=== PATIENT | female | born 1970 | race Caucasian/White ===

== ENCOUNTER 2019-11-10 05:23 | Day surgery (SDC) | payer OTHER, SELFPAY ==
--- NOTE | 2019-10-27 17:20 | PCM.HP.BLA ---
History and Physical Date of Admission: 11/10/19 HPI: The patient is a 48 year old female presenting for pre-operative visit. She is scheduled for?laparoscopic supracervical hysterectomy with in the bag uterine morcellation, and cystoscopy, for?menorrhagia and uterine fibroids on?11/10/19. ??Procedure discussed along with risks, benefits and complications. ?Other alternatives discussed for management. Consent form signed??Yes.? PAST MEDICAL HISTORY PAST MEDICAL HISTORY Diagnosis Date ? Abnormal glandular Papanicolaou smear of cervix ? ? Abn. Pap smear (cervix) ? Dysmenorrhea ? ? Excessive or frequent menstruation ? ? Heavy periods ? Fibroids ? ? Functional ovarian cysts ? ? Hypertension ? ? Migraines ? ? Thrombocytosis (HCC) ? ? Dr. Reddy ? ? PAST SURGICAL HISTORY PAST SURGICAL HISTORY Procedure Laterality Date ? COLPOSCOPY (VAGINOSCOPY) ? ? ? Colposcopy ? ? CURRENT MEDICATIONS Current Outpatient Medications Medication Sig Dispense Refill ? norethindrone (AYGESTIN) 5 mg tablet Take 1 tablet by mouth once daily. ONE PO Q 1 HR UNTIL BLEEDING SLOWS, UP TO 5 TABS TODAY. ?THEN ONE PO QID X 3 DAYS THEN TID X 3 DAYS THEN BID X 3 DAYS THEN ONE QDAY. 40 tablet 1 ? valsartan (DIOVAN) 320 mg tablet Take 1 tablet by mouth once daily. 90 tablet 3 ? omeprazole (PRILOSEC) 20 mg capsule Take 1 capsule by mouth daily before breakfast. 1/2 hr before meal. 90 capsule 1 ? cyclobenzaprine (FLEXERIL) 10 mg tablet Take 1 tablet by mouth three times daily as needed. 30 tablet 0 ? hydrOXYzine pamoate (VISTARIL) 25 mg capsule Take 1 capsule by mouth three times daily as needed for Anxiety. 270 capsule 0 ? ibuprofen (MOTRIN) 800 mg tablet Take 1 tablet by mouth three times daily as needed for Pain. FOR PAIN. TAKE WITH FOOD. 180 tablet 0 ? norethindrone-e.estradiol-iron (LO LOESTRIN FE) 1 mg-10 mcg (24)/10 mcg (2) tab Take 1 tablet by mouth once daily. 3 Package 4 ? rizatriptan (MAXALT) 10 mg tablet Take 1 tablet by mouth as needed. AT ONSET OF HEADACHE. ?MAY REPEAT AFTER 2 HOURS. ?DO NOT EXCEED 30 MG PER DAY. 9 tablet 1 ? traZODone (DESYREL) 50 mg tablet Take 1 tablet by mouth daily at bedtime. 90 tablet 1 ? multivitamin tablet Take 1 tablet by mouth once daily. ? 0 ? Vit A,C and Z-Nxgyig-Phmzvfmk (OCUVITE WITH LUTEIN) 1,000 unit-200 mg-60 unit-2 mg tab Take 1 tablet by mouth once daily. ? 0 ? No current facility-administered medications for this visit.? ? ALLERGIES:?Azithromycin; Penicillins ? PERSONAL HISTORY:? SOCIAL HISTORY Social History ? Tobacco Use ? Smoking status: Never Smoker ? Smokeless tobacco: Never Used Substance Use Topics ? Alcohol use: Yes ? ? Comment: social ? Drug use: No ? FAMILY HISTORY:? FAMILY HISTORY FAMILY HISTORY Problem Relation Age of Onset ? Breast Cancer Mother ?in her 50s, lumpectomy, on rx or chemo, on tamoxifen ? Hypertension Mother ? ? Stroke Mother ? ? Coronary Artery Disease Father ? ? Hypertension Father ? ? Stroke Father ? ? other (abnormal mammogram) Sister ? ? Diabetes Maternal Grandmother ? ? Coronary Artery Disease Maternal Grandfather ? ? Coronary Artery Disease Paternal Grandfather ? ? REVIEW OF SYMPTOMS: GENERAL: denies fevers or chills ENDOCRINOLOGY: has not been on steroids Cardiology : denies palpitations or chest pain Respiratory: denies SOB or cough Hematology: denies history of prolonged bleeding or easy bruising or VTE Allergy: Denies history of personal or family history of allergy to anesthesia ? ? PHYSICAL EXAMINATION: ? VITALS:?There were no vitals taken for this visit. ? GENERAL:??The patient is well nourished, well hydrated in no acute distress. ?, The patient is oriented to time, place, and person. NECK:?Supple. No lynphadenopathy, normal thyroid, no thyromegaly. LUNGS:?Clear to auscultation bilaterally. no wheezes, rhonchi or rales HEART:?Regular rate and rhythm, Normal heart sounds and No murmurs or gallops ? ? Endometrial biopsy 09/14/19-?extensively fragmented and spurs proliferative endometrium with stromal breakdown and clotted blood Pap 01/04/18 - Negative w/ Neg. HRHPV ? ? Pelvic US 09/14/19: Overall impression: - Enlarged, anteverted uterus with three fibroids present. The ?fibroids are all intramural. The largest fibroid measures 8.5 cm in size. Compared to previous US, there is a new anterior fibroid measuring 4.7 cm in size. ?The other two fibroids are relatively stable in size as compared to the last US - Endometrial cavity is not well visualized - Bilateral ovaries are not visualized - No free fluid in pelvic CDS. Recommendations / therapy: Clinical correlation recommended. Indication: Menorrhagia. History: Last menstrual period: 07/23/2019. Gynecological Ultrasonography: Uterus: normal, anteverted. Size: Longitudinal 104 mm. Anterio- posterior 78 mm. Transverse 116 mm. Volume: 492.7 ml. Fibroids: Fibroid 1: Size: 85 mm x 67 mm x 79 mm. Position: fundus. Fibroid 2: Size: 45 mm x 38 mm x 47 mm. Type: anterior. Position: left mid uterus. ?? Fibroid 3: Size: 50 mm x 33 mm x 43 mm. Type: posterior. Position: rt mid uterus. Endometrium: endometrial cavity could not be seen clearly. Endometrium thickness total: 5.0 mm. Right Ovary: subvisualized. Left Ovary: subvisualized. Cul de Sac / Pouch of Bang: no free fluid visible. ? IMPRESSION:?Menorrhagia, enlarged uterus due to intramural and submucosal uterine fibroids ? PLAN:???The risks/benefits/alternatives and personal involved for the planned?laparoscopic supracervical hysterectomy with in bed morcellation, bilateral salpingectomy and cystoscopy?were reviewed with the patient. Her questions were answered to her satisfaction and she desires to proceed. ?Consent was signed. ?I reviewed with her postop instructions and expectations. ? ? I have reviewed and updated past medical and surgical history, medications and allergies. this history and physical was completed in my office on 10/26/2019.
[2019-11-10] VITALS (16 sets, daily range): BP systolic 84–116; BP diastolic 44–75; PULSE 56–96; RESP 15–20; TEMP 36.2–37.2; O2SAT 6–100; BMI 30.1
[2019-11-10 06:00] LABS: Bedside Glucose 92 mg/dL (70-110)
[2019-11-10 06:03] LABS: Internal QC Validated? YES +Cl - CLEAR BKGD; Pregnancy, Urine Negative Negative
[2019-11-10] MEDS: Gabapentin 600 MG Tablet PO (06:21)
[2019-11-10] MEDS: Acetaminophen 500 MG Tablet 1000 MG PO ×2 (06:21→18:02)
[2019-11-10] MEDS: Celecoxib 200 MG Capsule 400 MG PO (06:21)
[2019-11-10] MEDS: Phenazopyridine 95 MG Tablet 190 MG PO (06:22)
[2019-11-10] MEDS: Enoxaparin 40 MG/0.4 ML Syringe SC (06:23)
[2019-11-10] MEDS: Magnesium Sulfate 4gm/100mL 4 GM/100 ML IV.SOLN. IV (06:29)
[2019-11-10] MEDS: Lactated Ringers 1,000 ML 40 ML IV (06:29)
[2019-11-10] MEDS: Scopolamine 1mg/72hr Patch 1 PATCH TRANSDERM. (06:30)
--- NOTE | 2019-11-10 07:30 | HYST_PTH ---
PATIENT: RONDA PADILLA LOC: [facility] [place] U#:[id number] AGE/SX: 49/F ROOM: RE11/10/[address]: Dr. April Reardon MD : 1970 BED: DIS: 11/11/2019 SPEC #: [id number] RECD: 11/10/19 12:17 STATUS: CARMINA MARC #: [id number] YANIRA: 11/10/19 07:[address]: April Reardon DEPT: SURGICAL PATHOLOGY RECD BY: Levar Corbett ENTERED: 11/10/19 13:19 SP TYPE: HYSTERECT OTHR DR: Dr. Raffy Charles MD Tissues: Uterus, NOS Procedures: Surgery Specimen Level V HEADER OPERATION: ERAS, supracervical laparoscopic hysterectomy, bilateral salpingectomy PRE-OP DIAGNOSIS: Menorrhagia, enlarged uterus due to intramural and submucosal uterine fibroids TISSUE SUBMITTED: Uterus, bilateral fallopian tubes and right ovary MICROSCOPIC DIAGNOSIS Uterus, hysterectomy: Endometrium - weakly proliferative to inactive endometrium. Myometrium - leiomyomas. Right and left fallopian tubes - no pathologic change. Right ovary - follicular and hemorrhagic corpus luteal cysts. AM:mikael 11/11/19 MICROSCOPIC DESCRIPTION Slides are reviewed. GROSS DESCRIPTION Received in fixative is one container labeled with the patient's name and designated uterus. The specimen consists of a morcellated uterus received in more than 70 fragments ranging in size from 0.8 cm to 12 cm. No recognizable ectocervix and/or endocervix are seen. A distinct endometrial surface is not identified. The majority of the fragment (greater than 95%) are white rubbery and have whorled cut surfaces and consistent with leiomyomas. A smooth, glistening cystic ovary is identified attached to one fragment measuring 4 x 3.5 x 2.5 cm. The adjacent fallopian tube measures 6 cm in length and 0.5 cm in diameter. Also free in the container is a second fallopian tube measuring 7 cm in length and 0.6 cm in average diameter. Both fragments of have normal fimbriated ends. The rubbery nodular fragments in the container range in size from 1.5 to 6 cm in greatest dimension. The external surface of the ovary and adjacent fallopian tube are inked in black ink. No tubo-ovarian adhesions are seen. Sections of the ovary?reveal a blood-filled cyst measuring 3.2 cm in greatest dimension. Water Vessel Captain sections are submitted in 13 cassettes as follows: 1-3 - presumed endometrium and adjacent myometrium and myometrial masses, 4 - fallopian tube free in container, 5-8 - ovary with adjacent fallopian tube, 913??traveling sales representative sections of rubbery fragments free in container (presumed leiomyomas). / AM:mikael 11/10/19 TC:1 CPT: 39863
[2019-11-10] MEDS: Cefazolin 2 GM in 0.9% Normal Saline 100 ML IV (07:32)
[2019-11-10] MEDS: dexAMETHasone 10 MG/ML Vial 8 MG IV (07:45)
[2019-11-10] MEDS: Lactated Ringers 1,000 ML 70 ML IV (07:45)
[2019-11-10] MEDS: Ondansetron 4 MG/2 ML Vial IV (10:52)
[2019-11-10] MEDS: Bupivacaine Mpf 0.5% 30 ML VIAL (11:09)
--- NOTE | 2019-11-10 11:13 | PCM.OPRPT ---
Report of Operation Date of Procedure: 11/10/19 Pre-Operative Diagnosis: uterine fibroids, menorrhagia Post-Operative Diagnosis: same Surgery/Procedure Performed:: Supracervical laparoscopic hysterectomy with right salpingo-oophorectomy and left salpingectomy and cystoscopy, morcellation of the uterus in the olympus containment system Description of Surgical Findings:: Enlarged bulky uterus with multiple fibroids, right ovary adhered to the uterus with approximately a 4 cm ovarian cyst, left ovary appeared normal, normal otherwise appearing peritoneal cavity, normal-appearing cervix and vagina. Normal-appearing bladder. tape keller operator: Melita Thomas Type of Anesthesia:: General Anesthesiologist: Liberty Camacho Special Medications: none Specimen's removed: uterus, bilateral tubes, right ovary Drains: locke Estimated Blood Loss (mL): 200 Fluids Replaced: 1100 cc Description of Procedure: The patient was taken to the operating room where she was prepped and draped in the dorsal lithotomy position. Her arms were tucked to the side and padded and her legs were placed in the yellowfin stirrups. Care was taken to ensure that she was placed in a neurologically safe and neutral position. A weighted speculum was placed in the vagina and the anterior lip of the cervix was grasped with a single-tooth tenaculum. The cervix sounded to 14 centimeters. 2-0 Vicryl sutures were secured to the cervix at 3 and 9:00. The V-Care placed into the cervix and the balloon inflated. The stay sutures were placed through the cup and secured down to the cervix. Once the V-Care was secured to the cervix the Locke catheter was placed to straight drain. Attention was turned to the abdominal portion of the case. Before skin incisions were made they were infiltrated with 0.5% Marcaine solution for local anesthetic. A 5 mm supraumbilical incision was made and while tenting the anterior abdominal wall up with towel clamps a 5 mm blade less trocar and sleeve were advanced directly into the peritoneal cavity. Peritoneal placement was confirmed with the laparoscope the pneumoperitoneum was created, and the underlying abdominal contents were intact. The patient was placed in Trendelenburg and the above findings were noted. Right and left lateral 5 mm trochars were placed under direct visualization without difficulty. The filmy adhesions of the anterior abdominal wall were taken down with the LigaSure device. The adhesions of the anterior abdominal wall to the uterus were then taken down with the LigaSure device. The antimesenteric portion of the tube was clamped sealed and transected serially on both sides with the LigaSure device. The round ligaments were clamped sealed and transected and a window was made in the peritoneum. The utero-ovarian ligaments were then clamped sealed and transected with the LigaSure device and the pedicles were hemostatic The bladder flap was dissected down with the LigaSure device and blunt dissection and the uterine arteries were then skeletonized. The uterine arteries were clamped sealed and transected on both sides with the LigaSure device. Then along the cardinal ligament uterine arteries adjacent to the cervix were clamped sealed and transected with the LigaSure device to move them away from the the isthmic part of the cervix. At this point the pedicles were all examined and found to be hemostatic. The bladder flap was rechecked and found to be adequately down. The monopolar tip of the LigaSure device was then used to amputate the uterus from the cervix. After the uterus was freed, and the uterine manipulator had been removed, there was a blood vessel noted to be bleeding along the right lateral portion of the cervix. An attempt was made to clamp and seal this with the LigaSure but was unsuccessful. Hemo-lock clamps were placed around the vessel and then hemostasis was noted. The end of the cervix was cauterized until it was hemostatic and some Samson was placed over it. The Olympus containment system was then readied. The incision above the umbilicus was extended to approximately 3 cm. The opus containment system was placed into this and the bag placed around the uterus and secured. The lateral ports were removed and the bag was insufflated. I then used the Olympus morcellator to morcellate part of the uterus in the bag. However, the uterus was very calcified where the fibroids were located. Because of the calcification of the fibroids, and the bulk of the uterus, it did take at least an additional 45 minutes to morcellate the uterus. After as much of the some fibroids was morcellated as we could do with the Olympus morcellator, decision was made to morcellate the rest with a scalpel in the bag and bring it out through the supraumbilical incision. This was then performed. All pieces of the uterus were left in the bag and none were dropped into the peritoneal cavity. The right ovary was also brought out through the bag. At this point the fascia was closed along this incision with an 0 Vicryl suture in a running standard fashion. The lateral ports were placed back in and hemostasis of the pedicles and cuff was noted. The pneumoperitoneum was then released. Should be noted that suction superintendent renting managing was used to remove any blood and fluid and peritoneal cavity was irrigated at the end of the procedure. The Lcoke catheter was removed and a cystoscopy was performed. The bladder appeared normal and was intact. Both ureteral orifices were noted and both ureteral jets were seen. The cystoscope was removed and the Locke catheter was placed back to straight drain. The umbilical skin incisions were closed with Monocryl suture and skin glue by Dr. Low. The vaginal instruments were removed by me and a vaginal sweep was completed by me. The surgery was performed by me with assistance other than the portions dictated as above. There were no qualified residents available for this procedure. All sponge lap and needle counts were correct and the patient was transferred to the recovery room in stable condition. Grafts/Implants Used: none - Complications none - Admit VTE Documentation VTE Present on Admission: No VTE Mechan Device Prophylaxis: SCD's VTE Pharm Prophylaxis ordered?: Yes
[2019-11-10] MEDS: Ketorolac 30 MG/ML Syringe IV (18:02)
[2019-11-10] MEDS: Senna/Docusate Sodium 1 Tablet PO (21:34)
[2019-11-10] MEDS: Docusate Sodium 100 MG Capsule PO (21:34)
[2019-11-11] MEDS: Acetaminophen 500 MG Tablet 1000 MG PO ×3 (00:34→12:09)
[2019-11-11] MEDS: Ketorolac 30 MG/ML Syringe IV ×3 (00:34→12:08)
[2019-11-11] MEDS: Lactated Ringers 1,000 ML 70 ML IV (00:34)
[2019-11-11 03:32] VITALS: BP 107/57; PULSE 81; RESP 16; TEMP 36.9; O2SAT 98
[2019-11-11 06:56] LABS: Hematocrit 27.3 % (37-47); Hemoglobin 8.9 g/dL (12.0-15.0); Mean Corp Hgb Conc 32.6 g/dL (32-36); Mean Corpuscular Hgb 30.1 pg (27.0-32.0); Mean Corpuscular Volume 92.2 fL (81-99); Mean Platelet Vol. 9.2 fl (6.2-12.0); Platelet Count 365 K/mm3 (150-450); RBC Distribution Width CV 12.2 % (11.6-14.6); RBC Distribution Width SD 41.1 fl (35.1-43.9); Red Blood Count 2.96 M/mm3 (4.2-5.4); White Blood Count 11.1 K/mm3 (4.4-11.0)
--- NOTE | 2019-11-11 07:55 | DCINST_ITS ---
Discharge Diet: No Restrictions Discharge Activity: Return to Normal Activity, May Not Drive - while taking narcotic pain medications., May Shower May resume sexual activity in: 6-8 weeks Call your doctor if your incision/area has: Continuous Slow Oozing, Sudden Increased Bleeding, Increased Pain/ Swelling, Increased Redness, Foul Smelling Discharge Call your doctor if you observe: Fever of 101 or Higher, Inability to urinate, Inability to have a bowel movement, Using more than one pad per hour Cleanse incision/area with: Soap & Water, - - your incisions have skin glue it can get wet. Leave it on for at least 10 days Additional Instructions: Alternate 1000 mg of acetaminophen with the ibuprofen every 6 hours. Use the oxycodone for breakthrough pain Allergies/Adverse Reactions: Allergies azithromycin [From Zithromax Z-Rickie] Allergy (Verified 11/10/19 05:45) Hives Medications to take at Discharge Ascorbic Acid [Vitamin C] 500 mg PO DAILY 10/27/19 Cholecalciferol (VIT D3) [Vitamin D3] 1,000 unit PO DAILY 10/27/19 FA/Vit C/E/Zinc/Copper/Lut/Guzman [Ocuvel Capsule] 1 ea PO DAILY 10/27/19 Mary Root 550 mg PO DAILY 10/27/19 Multivitamin [Multiple Vitamins] 1 ea PO DAILY 10/27/19 Valsartan [Diovan] 160 mg PO BID 10/27/19 Docusate Sodium [Colace] 100 mg PO BID PRN PRN #30 cap 11/11/19 Ibuprofen [Motrin] 800 mg PO TID PRN PRN #60 tab 11/11/19 Oxycodone [Oxyir] 5 mg PO Q4H PRN PRN 6 Days #22 tablet 11/11/19 The following prescriptions were given: Docusate Sodium [Colace] 100 mg PO BID PRN PRN #30 cap PRN Reason: Constipation Transmission Status: Pending to [id number] Ibuprofen [Motrin] 800 mg PO TID PRN PRN #60 tab PRN Reason: Pain Transmission Status: Pending to [id number] Oxycodone [Oxyir] 5 mg PO Q4H PRN PRN 6 Days #22 tablet PRN Reason: severe pain Transmission Status: Received by [id number] Primary Care Physician: Raffy Charles MD [Primary Care Provider] - Test Results: Test results from this visit will be discussed in further detail at your follow- up appointment, if applicable. Please Follow Up With: April Reardon MD - [phone] When: 1-2 and 6 weeks or as needed
[2019-11-11] MEDS: Senna/Docusate Sodium 1 Tablet PO (08:04)
[2019-11-11] MEDS: Enoxaparin 40 MG/0.4 ML Syringe SC (08:05)
[2019-11-11 08:09] VITALS: BP 99/57; PULSE 75; RESP 16; TEMP 36.8; O2SAT 99
--- NOTE | 2019-11-11 09:58 | PN.OBGYN_ITS ---
Objective: Pain well controlled, denies any chest pain or shortness of breath. No nausea or vomiting. - Physical Exam Vitals/I&O's: Vital Signs Temp Pulse Resp BP Pulse Ox 98.2 F 75 16 99/57 L 99 11/11/19 08:09 11/11/19 08:09 11/11/19 08:09 11/11/19 08:09 11/11/19 08:09 Oxygen Flow Rate (L/min) 6 Oxygen Delivery Method Room Air Weight: 79.7 kg Body Mass Index (BMI) 30.1 Intake and Output for Last 24 Hours 11/09/19 11/10/19 11/11/19 23:59 23:59 23:59 Intake Total 4010 / 4010 700 / 700 Output Total 850 / 850 2150 / 2150 Balance 3160 / 3160 -1450 / -1450 General: Alert, Cooperative, No apparent distress Abdomen: Soft, Non-Distended, Tender - Appropriately Skin: Incision - They are clean dry and intact with skin glue Laboratory Results 11/11/19 06:14: WBC 11.1 H, RBC 2.96 L, Hgb 8.9 L, Hct 27.3 L, MCV 92.2, MCH 30.1, MCHC 32.6, RDW Std Deviation 41.1, RDW Coeff of April 12.2, Plt Count 365, MPV 9.2 Current Medications Acetaminophen (Tylenol) 1,000 mg PO Q6 [facility] Last Admin: 11/11/19 06:19 Dose: 1,000 mg Documented by: Docusate Sodium (Colace) 100 mg PO BID [facility] Last Admin: 11/11/19 08:04 Dose: Not Given Documented by: Enoxaparin Sodium (Lovenox) 40 mg SC DAILY [facility] Last Admin: 11/11/19 08:05 Dose: 40 mg Documented by: Lactated Ringer's () 1,000 mls @ 70 mls/hr IV .[id number] [facility] Stop: 11/11/19 11:38 Last Admin: 11/11/19 00:34 Dose: 70 mls/hr Documented by: Sodium Chloride () 250 mls @ 15 mls/hr IV .[id number] PRN PRN Reason: Saline Flush Sodium Chloride () 250 mls @ 15 mls/hr IV .[id number] PRN PRN Reason: Additional IVPB Infusion Ketorolac Tromethamine (Toradol) 30 mg IV Q6 [facility] Stop: 11/12/19 00:01 Last Admin: 11/11/19 06:20 Dose: 30 mg Documented by: Losartan Potassium (Cozaar) 50 mg PO BID [facility] Last Admin: 11/11/19 08:03 Dose: Not Given Documented by: Magnesium Oxide (Mag-Ox 400) 400 mg PO DAILY PRN PRN PRN Reason: Constipation Ondansetron HCl (Zofran Odt) 4 mg PO Q6H PRN PRN PRN Reason: NAUSEA Oxycodone HCl (Oxyir) 5 - 10 mg PO Q4H PRN PRN PRN Reason: Pain Score 4-10/10 Prochlorperazine Edisylate (Compazine Iv) 5 mg IV Q4H PRN PRN PRN Reason: NAUSEA/VOMITING Senna/Docusate Sodium (Senokot-S, Krista-Colace) 1 tablet PO BID [facility] Last Admin: 11/11/19 08:04 Dose: 1 tablet Documented by: Sodium Chloride () 10 - 40 ml IV UD PRN PRN Reason: SALINE FLUSH Medical Necessity - Tobacco Use Smoking Status: Never smoker Tobacco Use: Non-smoker Assessment/Plan Postoperative day 1 status post laparoscopic supracervical hysterectomy with uterine morcellation. Patient is doing well overall. Mild acute blood loss appropriate for surgery and IV hydration. Recheck CBC at noon and if hemoglobin is stable, patient will be discharged home. JUAN DANIEL Alston
[2019-11-11 12:24] VITALS: BP 93/58; PULSE 70; RESP 16; TEMP 36.6; O2SAT 97
[2019-11-11 12:39] LABS: Hematocrit 26.4 % (37-47); Hemoglobin 8.6 g/dL (12.0-15.0); Mean Corp Hgb Conc 32.6 g/dL (32-36); Mean Corpuscular Hgb 30.2 pg (27.0-32.0); Mean Corpuscular Volume 92.6 fL (81-99); Mean Platelet Vol. 9.1 fl (6.2-12.0); Platelet Count 339 K/mm3 (150-450); RBC Distribution Width SD 41.1 fl (35.1-43.9); Red Blood Count 2.85 M/mm3 (4.2-5.4); White Blood Count 10.1 K/mm3 (4.4-11.0)
== END 2019-11-11 13:25 | disposition home or self-care (01) ==
LOC: SDC 05:26 → AC 05:31 → MS3 11-11 11:32
PROVIDERS: Anesthesiology; Family Provider Family Medicine; PCP Family Medicine; Referring Provider Obstetrics & Gynecology; Visit Provider Obstetrics & Gynecology
PROC: 0UT94ZZ Resection of Uterus, Percutaneous Endoscopic Approach (ICD-10-PCS; CPT 52000; principal; 2019-11-10 07:10)
DX: D28.2 Benign neoplasm of uterine tubes and ligaments (principal); N83.01 Follicular cyst of right ovary; N83.11 Corpus luteum cyst of right ovary; I10 Essential (primary) hypertension; Z79.899 Other long term (current) drug therapy
CPT/HCPCS: 52000; 58542; 36415; 81025; 82962; 85027; 86850; 86900; 86901; 88307; 99251; J7120; G0463; J2405

== ENCOUNTER → 2023-08-05 | Outpatient (CLI) | payer OTHER, SELFPAY ==
[2023-08-05 11:11] LABS: Erythrocyte Sedimentation Rate 31 mm/hr (0-30)
[2023-08-05 11:12] LABS: CRP 5.94 mg/L (0.0-3.0); Lipase 51 U/L (13-75)
== END | disposition home or self-care (01) ==
LOC: LABSPEC 10:46
PROVIDERS: PCP Family Medicine; Referring Provider Nurse Practitioner Primary Care; Visit Provider Nurse Practitioner Primary Care
DX: R10.11 Right upper quadrant pain (principal)
CPT/HCPCS: 83690; 85652; 86140